=== PATIENT | female | born 1960 | race Caucasian/White ===

== ENCOUNTER 2019-05-07 12:51 | Emergency (ER) | payer BC ==
[~2019-05-07] VITALS: Ht 160 cm; Wt 94.2 kg
[2019-05-07 12:59] VITALS: Ht 160 cm; Wt 94.2 kg
[2019-05-07] MEDS ORDERED: SOD CHLORIDE 0.9% 1,000 ML IV STA (15:55)
[2019-05-07] MEDS ORDERED: IOHEXOL 300MG/ML 150 ML BTL ONE (16:57)
[2019-05-07] MEDS ORDERED: SOD CHLORIDE 0.9% 100 ML ONE (16:57)
[2019-05-07 20:08] VITALS: BP 164/119; PULSE 77; RESP 18
== END 2019-05-07 20:09 | disposition home or self-care (01) ==
LOC: E/R 12:51
DX: N20.0 Calculus of kidney (principal); I10 Essential (primary) hypertension; F17.210 Nicotine dependence, cigarettes, uncomplicated; R20.0 Anesthesia of skin; R40.2142 Coma scale, eyes open, spontaneous, at arrival to emergency department; R40.2362 Coma scale, best motor response, obeys commands, at arrival to emergency department; R40.2252 Coma scale, best verbal response, oriented, at arrival to emergency department
CPT/HCPCS: 36415; 70450; 74177; 76705; 80053; 81001; 83690; 84484; 85025; 93005; 99285; J7030; Q9967; Z7610